=== PATIENT | female | born 1970 | race Asian ===

== ENCOUNTER 2021-12-22 15:48 | Emergency (ER) | payer MEDICAID, OTHER ==
[~2021-12-22] VITALS: Ht 160 cm; Wt 52.2 kg
[2021-12-22] MEDS ORDERED: ACETAMINOPHEN ES 500 MG TABLET PO ONE (16:00)
[2021-12-22] MEDS ORDERED: ACETAMINOPHEN ES 500 MG TABLET ONE (16:06)
--- NOTE | 2021-12-22 17:39 | NUR ---
PT WAS EVALUATED BY DR KIM. PT WAS D/C'd TO HOME. D/C INSTRUCTIONS GIVEN TO THE PT BY DR KIM.
[2021-12-22 17:40] VITALS: BP 129/77
--- NOTE | 2021-12-22 18:10 | NUR ---
Crutches dispensed. Pt instructed on proper use of crutches. Patient able to demonstrate correct use of crutches.
--- NOTE | 2021-12-22 18:16 | NUR ---
Patient discharged to home in stable condition. Written and verbal after care instructions given. Patient verbalizes understanding of instructions. Stressed follow up or return to ER for worsening s/s.
== END 2021-12-22 18:17 | disposition home or self-care (01) ==
LOC: ER 15:48
DX: S81.002A Unspecified open wound, left knee, initial encounter (principal); V28.4XXA Motorcycle driver injured in noncollision transport accident in traffic accident, initial encounter; Y92.410 Unspecified street and highway as the place of occurrence of the external cause; M25.562 Pain in left knee; M79.642 Pain in left hand
CPT/HCPCS: 73130; A4663; A9150